=== PATIENT | female | born 1940 | race Caucasian/White ===

== ENCOUNTER 2023-01-04 06:53 | Day surgery (SDC) | payer MEDICARE, BC ==
[~2023-01-04 06:53] MED LIST: Lactated Ringers 1,000 ML IV SCH; Lidocaine 1%/Sod Bicarbonate in NS 8.4% 1 ML Syringe IDERM PRN; Sodium Chloride 0.9% 10 ML Syringe FLUSH PRN; Sodium Chloride 0.9% 10 ML Syringe FLUSH SCH
[2023-01-04] MEDS ORDERED: Midazolam 1 MG/ML 2 ML SDV ONE (07:50)
[2023-01-04] MEDS ORDERED: Propofol 200 MG/20 ML SDV ONE ×2 (07:50→08:19)
[2023-01-04] MEDS ORDERED: fentaNYL 100 MCG/2 ML SDV ONE (07:50)
== END 2023-01-04 09:30 | disposition home or self-care (01) ==
LOC: JD.SDS 06:53
PROVIDERS: ATTEND Surgery
DX: Z12.11 Encounter for screening for malignant neoplasm of colon (principal); D12.4 Benign neoplasm of descending colon; K57.30 Diverticulosis of large intestine without perforation or abscess without bleeding; M19.90 Unspecified osteoarthritis, unspecified site; F32.A Depression, unspecified; E78.5 Hyperlipidemia, unspecified; Z85.038 Personal history of other malignant neoplasm of large intestine; Z98.0 Intestinal bypass and anastomosis status; Z90.49 Acquired absence of other specified parts of digestive tract; Z91.048 Other nonmedicinal substance allergy status; Z79.899 Other long term (current) drug therapy; Z83.71 Family history of colonic polyps; Z79.01 Long term (current) use of anticoagulants; Z91.018 Allergy to other foods; Z87.891 Personal history of nicotine dependence
CPT/HCPCS: 45380; J2250; J2704; J3010; J7120; 00812

== ENCOUNTER 2024-03-22 19:40 | Emergency (ER) | payer MEDICARE, BC ==
[2024-03-22 20:16] LABS: BASOPHILS ABSOLUTE AUTO 0.1 K/mm3 (0.0-0.2); BASOPHILS PERCENT AUTO 1.1 % (0.0-1.0); EOSINOPHILS ABSOLUTE AUTO 0.1 K/mm3 (0.0-0.4); HEMATOCRIT 40.8 % (37.0-47.0); HEMOGLOBIN 13.7 gm/dl (12.0-16.0); IMMATURE GRAN ABSOLUTE AUTO 0.01 K/mm3 (0.00-0.05); IMMATURE GRAN PERCENT AUTO 0.2 % (0.0-0.4); LYMPHOCYTES ABSOLUTE AUTO 1.2 K/mm3 (1.0-4.8); MEAN CORPUSCULAR HEMOGLOBIN 29.9 pg (28.0-32.0); MEAN CORPUSCULAR HGB CONC 33.6 g/dl (32.0-36.0); MEAN CORPUSCULAR VOLUME 89.1 fl (83.0-99.0); MONOCYTES ABSOLUTE AUTO 0.6 K/mm3 (0.0-0.8); MONOCYTES PERCENT AUTO 9.8 % (0.0-8.0); NEUTROPHILS ABSOLUTE AUTO 4.4 K/mm3 (1.8-7.7); NEUTROPHILS PERCENT AUTO 67.9 % (41.0-71.0); PLATELET COUNT,PLT 256 K/mm3 (150-400); RED BLOOD CELL COUNT 4.58 M/mm3 (4.10-5.30); WHITE BLOOD CELL COUNT,WBC 6.41 K/mm3 (3.9-11.3)
[2024-03-22 20:33] LABS: INR 1.06; PROTHROMBIN TIME 11.3 SECONDS (9.7-12.0)
[2024-03-22 20:50] LABS: ALBUMIN 3.6 g/dl (3.4-5.0); ANION GAP 13.6 (5-15); BILIRUBIN TOTAL 0.7 mg/dL (0.2-1.0); BUN/CREATININE RATIO 13.8 (14-18); CALCIUM 9.1 mg/dL (8.5-10.1); CREATININE 0.8 mg/dL (0.55-1.02); EST CRCL DRUG DOSING (CG) 45.2 mL/min; POTASSIUM,K 3.6 mEq/L (3.5-5.1); PROTEIN TOTAL,TP 7.3 g/dl (6.4-8.2); TSH 1.905 uIU/mL (0.358-3.74)
[2024-03-22] MEDS: Sodium Chloride 0.9% 1,000 ML IV ONE (21:13)
[2024-03-22] MEDS: Famotidine 20 MG/2 ML SDV IVPUSH ONE (21:13)
[2024-03-22] MEDS: Aluminum Hydroxide/Magnesium Hydroxide/Simethicone Susp 30 ML Cup PO ONE (21:13)
[2024-03-22 21:55] LABS: APPEARANCE,URINE CLEAR (Clear); BILIRUBIN,URINE NEGATIVE (Negative); COLOR,URINE YELLOW (Yellow); GLUCOSE,URINE NEGATIVE (Negative); KETONES,URINE NEGATIVE (Negative); LEUKOCYTE ESTERASE,URINE 1+ (Negative); NITRITE,URINE NEGATIVE (Negative); OCCULT BLOOD,URINE NEGATIVE (Negative); PROTEIN,URINE NEGATIVE (Negative); UROBILINOGEN,URINE 0.2 (0.2-1.0)
[2024-03-22] MEDS: Ketorolac 15 MG/ML SDV IVPUSH ONE (22:13)
[2024-03-22] MEDS: Iopamidol 755 Mg/ML 100 ML Bottle IVPUSH ONE (22:28)
[2024-03-22 22:29] LABS: BACTERIA,URINE FEW /hpf (FEW); MUCUS,URINE FEW /hpf (FEW); RBC,URINE 0-5 /hpf (0-5); WBC,URINE 0-5 /hpf (0-5)
[2024-03-22] MEDS: Sodium Chloride 0.9% 10 ML Syringe FLUSH PRN (22:29)
[2024-03-22] MEDS ORDERED: Sodium Chloride 0.9% 100 ML IV SCH (22:30)
== END 2024-03-23 00:45 | disposition home or self-care (01) ==
LOC: JD.ED 19:40
DX: R10.13 Epigastric pain (principal); Z90.710 Acquired absence of both cervix and uterus; Z79.899 Other long term (current) drug therapy; Z91.018 Allergy to other foods
CPT/HCPCS: 36415; 71275; 72191; 74175; 80053; 81001; 83690; 84443; 84484; 85025; 85610; 85730; 87086; 93005; 96361; 96374; 96375; 99285; A9270; J1885; J3490; J7030; Q9967